=== PATIENT | male | born 1980 | race Caucasian/White ===

== ENCOUNTER → 2016-08-15 | Outpatient (CLI) | payer MEDICARE, MEDICAID ==
[~2016-08-15] MED LIST: FLEX10TA2 PO; IBUPROFEN PO; PERCOCET PO; ULTR50TA PO; VICOBULK PO
--- NOTE | 2016-08-15 11:08 | REP ---
MRI ADRENAL GLANDS: TECHNIQUE: Coronal T1, T2, axial T1, T2, in-phase, [id number], T1 fat sat, post IV gadolinium axial and coronal T1 fat sat with the intravenous administration of 12 mL of gadolinium. Correlation made with the recent CT of the chest 07/23/2016, which showed a left adrenal nodule. There is a left adrenal nodule present. It measures approximately 2 cm in diameter. It is hypointense on T1 and markedly hyperintense on T2. It does not enhance. Comparing the in-phase to [id number] images, there is consistent low signal of the same signal intensity on both of these sequences. The findings are consistent with a benign cyst. Right adrenal gland is normal. The other visualized upper abdominal structures appear normal. I see no adenopathy or free fluid in the visualized abdomen. IMPRESSION: Nonenhancing left adrenal cyst is benign. No other abnormality is seen. Signed by Himanshu Neal MD 08/15/2016 03:19 P
== END ==
LOC: M RAD 09:15
PROVIDERS: ATTEND Physician Assistant
DX: D44.10 Neoplasm of uncertain behavior of unspecified adrenal gland (principal)
CPT/HCPCS: 74183; A9576

== ENCOUNTER → 2016-09-10 | Outpatient (REF) | payer MEDICARE, MEDICAID | LOC: M LAB REF 17:19 | PROVIDERS: ATTEND Internal Medicine Pulmonary Disease | DX: R05 Cough (principal) ==

== ENCOUNTER → 2016-09-11 | Outpatient (REF) | payer MEDICARE, MEDICAID | LOC: M LAB REF 12:55 | PROVIDERS: ATTEND Internal Medicine Pulmonary Disease | DX: R05 Cough (principal) ==

== ENCOUNTER → 2017-04-29 | Outpatient (REF) ==
--- NOTE | 2017-04-29 10:50 | REP ---
LUMBAR SPINE SERIES: Three views. HISTORY: Degenerative disc disease. Comparison lumbar spine radiographs are from September 15, 2014 done at [facility] . FINDINGS: Lumbar vertebral body heights are preserved and alignment is normal. Disc spaces are maintained. Pedicles and posterior elements are intact. There is no evidence of spondylolysis or spondylolisthesis. Sacrum, SI joints and psoas margins are intact. Visualized bowel gas pattern is normal. IMPRESSION: Negative lumbar spine radiographs. Signed by Jones Langston MD 04/29/2017 03:49 P
== END ==
LOC: M SMT 09:36
PROVIDERS: ATTEND Internal Medicine
DX: Z02.9 Encounter for administrative examinations, unspecified (principal)